=== PATIENT | female | born 1960 | race Caucasian/White ===

== ENCOUNTER 2020-01-18 10:31 | Outpatient (REF) | payer MEDICAID, SELFPAY ==
[2020-01-18 11:14] LABS: Anion Gap 10.4 mmol/L (3-11); BUN 28 mg/dL (7-18); CO2 25.6 mmol/L (21.0-32.0); CREATININE 1.35 mg/dL (0.55-1.02); Calcium 9.3 mg/dL (8.5-10.1); Chloride 105 mmol/L (98-107); Estimated GFR 40.14 (mL/min/1.73m2); Glucose 107 mg/dL (74-106); Potassium 4.4 mmol/L (3.5-5.1); Sodium 141 mmol/L (136-145)
== END 2020-01-18 10:51 ==
LOC: LBN 10:31
PROVIDERS: PCP Family Medicine; Visit Provider Internal Medicine
DX: L89.894 Pressure ulcer of other site, stage 4 (principal)
CPT/HCPCS: 80048

== ENCOUNTER 2020-03-06 16:32 | Outpatient (REF) | payer MEDICAID, SELFPAY ==
[2020-03-06 17:08] LABS: Bilirubin Negative (Negative); Blood Moderate (Negative); Clarity Sl Cloudy (Clear); Glucose Negative (Negative); Ketones Negative (Negative); Leukocyte Esterase Small (Negative); Nitrite Positive (Negative); Urobilinogen 0.2 EU/dL (Up TO 0.2); pH 5.5 (5-8)
[2020-03-06 17:19] LABS: Bacteria Many HPF (Negative); C & S Indicated? Yes; Crystals Negative HPF (Negative); Epithelial Cells Negative HPF (Negative); Mucus Negative (Negative); Other Cells Few Transitional (Negative); WBC >50 HPF (0-5)
== END 2020-03-06 16:52 ==
LOC: LBN 16:32
PROVIDERS: PCP Family Medicine; Visit Provider Urology
DX: N20.0 Calculus of kidney (principal)
CPT/HCPCS: 87077; 81003; 81015; 87086; 87186

== ENCOUNTER 2020-04-22 19:49 | Outpatient (REF) | payer MEDICAID, SELFPAY ==
[2020-04-22 21:12] LABS: Anion Gap 8.8 mmol/L (3-11); BUN 43 mg/dL (7-18); CO2 26.2 mmol/L (21.0-32.0); CREATININE 1.39 mg/dL (0.55-1.02); Calcium 8.9 mg/dL (8.5-10.1); Chloride 100 mmol/L (98-107); Estimated GFR 38.81 (mL/min/1.73m2); Glucose 91 mg/dL (74-106); Potassium 4.7 mmol/L (3.5-5.1); Sodium 135 mmol/L (136-145)
== END 2020-04-22 20:09 ==
LOC: LBN 19:49
PROVIDERS: PCP Family Medicine; Visit Provider Internal Medicine
DX: R79.89 Other specified abnormal findings of blood chemistry (principal)
CPT/HCPCS: 80048

== ENCOUNTER 2020-05-08 16:06 | Outpatient (REF) | payer MEDICAID, SELFPAY ==
[2020-05-08 14:09] LABS: Anion Gap 11.5 mmol/L (3-11); BUN 35 mg/dL (7-18); CO2 25.5 mmol/L (21.0-32.0); CREATININE 1.2 mg/dL (0.55-1.02); Calcium 9.3 mg/dL (8.5-10.1); Chloride 103 mmol/L (98-107); Estimated GFR 45.98 (mL/min/1.73m2); Glucose 90 mg/dL (74-106); Potassium 5.6 mmol/L (3.5-5.1); Sodium 140 mmol/L (136-145)
== END 2020-05-08 16:07 | disposition home or self-care (01) ==
LOC: LBN 16:06
PROVIDERS: PCP Family Medicine; Visit Provider Internal Medicine
DX: I10 Essential (primary) hypertension (principal)
CPT/HCPCS: 80048

== ENCOUNTER 2020-05-24 14:51 | Outpatient (REF) | payer MEDICAID, SELFPAY ==
[2020-05-24 16:17] LABS: Anion Gap 10.4 mmol/L (3-11); CO2 25.6 mmol/L (21.0-32.0); CREATININE 1.3 mg/dL (0.55-1.02); Calcium 10.1 mg/dL (8.5-10.1); Chloride 103 mmol/L (98-107); Estimated GFR 41.92 (mL/min/1.73m2); Glucose 106 mg/dL (74-106); Potassium 5.1 mmol/L (3.5-5.1); Sodium 139 mmol/L (136-145)
[2020-05-24 16:28] LABS: BUN 100 mg/dL (7-18)
[2020-05-26 13:25] LABS: ALT 15 U/L (14-59); AST 10 U/L (15-37); Albumin 3.5 g/dL (3.4-5.0); Alkaline Phosphatase 111 U/L (46-116); Bilirubin, Direct 0.08 mg/dL (0.00-0.20); Bilirubin, Total 0.2 mg/dL (0.2-1.0); Total Protein 8.7 g/dL (6.4-8.2)
== END 2020-05-24 14:52 | disposition home or self-care (01) ==
LOC: LBN 14:51
PROVIDERS: PCP Family Medicine; Visit Provider Internal Medicine
DX: I10 Essential (primary) hypertension (principal); E78.5 Hyperlipidemia, unspecified; J44.9 Chronic obstructive pulmonary disease, unspecified; G47.33 Obstructive sleep apnea (adult) (pediatric)
CPT/HCPCS: 80048; 80076

== ENCOUNTER 2020-06-07 13:50 | Outpatient (REF) | payer MEDICAID, SELFPAY ==
[2020-06-07 14:12] LABS: BUN 59 mg/dL (7-18); C-Reactive Protein 1.73 mg/dL (0.0-0.3); CREATININE 1.1 mg/dL (0.55-1.02); Calcium 9.1 mg/dL (8.5-10.1); Chloride 106 mmol/L (98-107); Estimated GFR 50.84 (mL/min/1.73m2); Glucose 91 mg/dL (74-106); Magnesium 1.8 mg/dL (1.8-2.4); Potassium 5.8 mmol/L (3.5-5.1); Sodium 138 mmol/L (136-145)
== END 2020-06-07 13:51 | disposition home or self-care (01) ==
LOC: LBN 13:50
PROVIDERS: PCP Family Medicine; Visit Provider Internal Medicine
DX: L89.154 Pressure ulcer of sacral region, stage 4 (principal)
CPT/HCPCS: 80048; 83735; 86140

== ENCOUNTER 2020-06-19 16:12 | Outpatient (REF) | payer MEDICAID, SELFPAY ==
[2020-06-19 18:55] LABS: Anion Gap 7.5 mmol/L (3-11); BUN 49 mg/dL (7-18); CO2 22.5 mmol/L (21.0-32.0); CREATININE 1.1 mg/dL (0.55-1.02); Chloride 109 mmol/L (98-107); Estimated GFR 50.84 (mL/min/1.73m2); Glucose 88 mg/dL (74-106); Magnesium 1.9 mg/dL (1.8-2.4); Sodium 139 mmol/L (136-145)
[2020-06-19 19:11] LABS: Potassium 6.6 mmol/L (3.5-5.1)
== END 2020-06-19 16:13 | disposition home or self-care (01) ==
LOC: LBN 16:12
PROVIDERS: PCP Family Medicine; Visit Provider Internal Medicine
DX: E87.5 Hyperkalemia (principal)
CPT/HCPCS: 80048; 83735

== ENCOUNTER 2020-06-24 13:43 | Outpatient (REF) | payer MEDICAID, SELFPAY ==
[2020-06-24 14:15] LABS: Anion Gap 11.2 mmol/L (3-11); BUN 46 mg/dL (7-18); CO2 21.8 mmol/L (21.0-32.0); CREATININE 1.6 mg/dL (0.55-1.02); Calcium 8.4 mg/dL (8.5-10.1); Chloride 105 mmol/L (98-107); Estimated GFR 32.88 (mL/min/1.73m2); Glucose 139 mg/dL (74-106); Potassium 5.6 mmol/L (3.5-5.1); Sodium 138 mmol/L (136-145)
== END 2020-06-24 13:44 | disposition home or self-care (01) ==
LOC: LBN 13:43
PROVIDERS: PCP Family Medicine; Visit Provider Internal Medicine
DX: E87.5 Hyperkalemia (principal)
CPT/HCPCS: 80048

== ENCOUNTER 2020-07-24 18:42 | Outpatient (REF) | payer MEDICAID, SELFPAY ==
[2020-07-24 16:16] LABS: Anion Gap 11.7 mmol/L (3-11); BUN 16 mg/dL (7-18); C-Reactive Protein 2.83 mg/dL (0.0-0.3); CO2 25.3 mmol/L (21.0-32.0); CREATININE 0.9 mg/dL (0.55-1.02); Calcium 9.6 mg/dL (8.5-10.1); Chloride 104 mmol/L (98-107); Glucose 124 mg/dL (74-106); Potassium 4.8 mmol/L (3.5-5.1); Sodium 141 mmol/L (136-145)
== END 2020-07-24 18:43 | disposition home or self-care (01) ==
LOC: LBN 18:42
PROVIDERS: PCP Family Medicine; Visit Provider Internal Medicine
DX: E87.5 Hyperkalemia (principal); L89.154 Pressure ulcer of sacral region, stage 4; G82.20 Paraplegia, unspecified
CPT/HCPCS: 80048; 86140

== ENCOUNTER 2020-09-26 17:32 | Outpatient (REF) | payer MEDICAID, SELFPAY ==
[2020-09-26 13:31] LABS: Abs Immature Grans 0.03 10^3/uL (0.0-0.06); Absolute Basophil Count 0.03 10^3/uL (0.0-0.2); Absolute Eosinophil Count 0.32 10^3/uL (0.0-0.7); Absolute Monocyte Count 0.31 10^3/uL (0.1-0.8); Absolute Neutrophil Count 4.19 10^3/uL (1.2-6.7); Basophils % 0.4; Eosinophils % 4.4; HCT 38.6 % (36.0-46.0); HGB 11.5 g/dL (11.2-15.7); Immature Grans % 0.4; MCH 23.9 pg (27.0-33.0); MCHC 29.8 % (32.0-36.0); MCV 80.1 fL (80-95); MPV 10.1 fL (8.0-11.0); Monocytes % 4.3; Neutrophils % 57.5; Nucleated RBC 0 %; Platelet Count 217 10^3/uL (130-400); RBC 4.82 10^6/uL (3.93-5.22); RDW 14.5 % (11.7-14.6); RDW-SD 41.8 fL; WBC 7.28 10^3/uL (4.4-10.8)
[2020-09-26 13:44] LABS: Iron 34 ug/dL (50-170); Total Iron Binding Capacity 295 ug/dL (250-450); Transferrin Sat 12 % (15-50)
[2020-09-26 13:57] LABS: Anion Gap 7.4 mmol/L (3-11); BUN 19 mg/dL (7-18); CO2 29.6 mmol/L (21.0-32.0); Calcium 8.9 mg/dL (8.5-10.1); Chloride 104 mmol/L (98-107); Estimated GFR 56.56 (mL/min/1.73m2); Ferritin 30 ng/mL (8-252); Glucose 130 mg/dL (74-106); Potassium 4.3 mmol/L (3.5-5.1); Sodium 141 mmol/L (136-145)
[2020-09-27 09:29] LABS: Transferrin 196 mg/dL (201-352)
== END 2020-09-26 17:33 | disposition home or self-care (01) ==
LOC: LBN 17:32
PROVIDERS: PCP Family Medicine; Visit Provider Internal Medicine
DX: E87.5 Hyperkalemia (principal); I10 Essential (primary) hypertension; G82.20 Paraplegia, unspecified; R79.89 Other specified abnormal findings of blood chemistry
CPT/HCPCS: 80048; 82728; 83540; 83550; 84466; 85025